=== PATIENT | female | born 1940 | race Caucasian/White ===

== ENCOUNTER 2019-11-25 17:04 | Inpatient (IN) | payer MEDICARE ==
[~2019-11-25] VITALS: Ht 160 cm; Wt 88.4 kg
[~2019-11-25 17:04] MED LIST: AMITIZA 24 MCG24 MCG PO; ASPIRIN EC81 M1 PO; ATENOLOL 25MG T25 MG PO; CARBIDOPA-LEVO1 EAC2 PO; DESYREL50 MG PO; DOCUSATE SODIU100 MG PO; DOXYCYCLINE 10100 MG PO; GLUMETZA500 PO; LACTULOSE10 GM/152; LEVOTHYROXIN0.112 M1; NORTRIPTYLINE H50 M3 GT; NOXIFOL-D32500 UNIT PO; PREDNISONE 20 M20 M1 PO; PROTONIX40 M2 PO; SMOOTHLAX17 GM PO; TYLENOL325 M1 PO; VENTOLIN HFA 1818 GM INH; VICODIN 5-5001 EACH PO; WOMAN'S LAXATIVE5 M1 PO; XANAX 0.5 MG0.5 M1 PO
[2019-11-25 17:16] VITALS: BP 162/71
[2019-11-25 18:00] LABS: CALCIUM 9.6 mg/dL (8.5-10.1); POTASSIUM 4.1 mmol/L (3.5-5.1)
[2019-11-25 18:01] LABS: APTT 26.4 Seconds (25.0-31.3); INR 1.1; PROTIME 10.8 Seconds (9.20-11.50)
[2019-11-25 18:10] LABS: ALBUMIN 3.5 g/dL (3.4-5.0); TOTAL BILIRUBIN 0.8 mg/dL (<0.1-1.0); TOTAL PROTEIN 6.8 g/dL (6.4-8.2)
[2019-11-25] MEDS ORDERED: ALPRAZOLAM 0.0.25 M1 PO (18:35)
[2019-11-25] MEDS ORDERED: LIPITOR 40 MG T40 M1 PO (18:35)
[2019-11-25] MEDS ORDERED: BRILINTA90 MG PO (18:36)
[2019-11-25] MEDS ORDERED: CARVEDILOL12.5 MG PO (18:38)
[2019-11-25] MEDS ORDERED: LEVO-T25 MCG PO (18:40)
[2019-11-25] MEDS ORDERED: NITROSTAT0.4 M1 SUBLING (18:41)
[2019-11-25] MEDS ORDERED: SENNA PLUS TAB1 EACH PO (18:42)
[2019-11-25] MEDS ORDERED: SERTRALINE HCL100 MG PO (18:43)
[2019-11-25 20:05] VITALS: BP 156/77
[2019-11-25 20:20] VITALS: BP 144/85
[2019-11-25 22:24] LABS: ABSOLUTE BASOPHILS 0.1 thou/uL (0.0-0.2); ABSOLUTE EOSINOPHILS 0.2 thou/uL (0.0-0.7); ABSOLUTE LYMPHOCYTES 1.5 thou/uL (0.8-5.3); ABSOLUTE MONOCYTES 0.7 thou/uL (0.0-1.2); BASOPHILS 0.8 %; EOSINOPHILS 1.7 %; HEMATOCRIT 33.5 % (37.0-47.0); HEMOGLOBIN 11.7 gm/dL (12.0-15.0); LYMPHOCYTES 14.2 %; MCH 30.1 pg (26.0-34.0); MCHC 34.9 g/dL (28.0-37.0); MCV 86.3 fL (80.0-100.0); MONOCYTES 6.8 %; MPV 8.4 fl. (7.2-11.1); NUCLEATED RBCS 0 /100WBC; PLATELET COUNT* 212 thou/uL (150-400); POLYS 76.5 %; RBC 3.89 mil/uL (4.20-5.00); RDW-CV 15.2 % (10.5-14.5); WBC 10.5 thou/uL (4.0-11.0)
[2019-11-25 23:54] VITALS: BP 156/71
--- NOTE | 2019-11-26 01:00 | NUR ---
PT ALERT, ORIENTED, SLOW RESPONCE, FORGETFUL. INITAL ASSESMENT PT NOTED TO HAVE TREMORS. TELEMETRY SHOWS SR. TREMORS INTERFERE WITH TELEMETRY. UP TO BSC WITH ASSIST OF TWO 5 TIMES. NO BM SINCE ADMISSION. BUTTOCKS SLIGHTLY RED BLANCHABLE. PT REQUESTED ANXIETY MEDS AND SLEEPING MEDICATION. XANAX AND MELATONIN GIVEN. PT CALLING OUT Q 15 MIN FOR VARIOUS THINGS UNTIL ASLEEP. WCTM
[2019-11-26 04:00] VITALS: BP 152/59
[2019-11-26 04:18] LABS: HEMATOCRIT 30.4 % (37.0-47.0); HEMOGLOBIN 10.5 gm/dL (12.0-15.0); MCH 29.8 pg (26.0-34.0); MCHC 34.6 g/dL (28.0-37.0); MCV 86.2 fL (80.0-100.0); MPV 8.9 fl. (7.2-11.1); RBC 3.52 mil/uL (4.20-5.00); RDW-CV 15.2 % (10.5-14.5); WBC 9.3 thou/uL (4.0-11.0)
[2019-11-26 04:44] LABS: ALBUMIN 2.8 g/dL (3.4-5.0); CALCIUM 9.2 mg/dL (8.5-10.1); CREATININE 0.9 mg/dL (0.6-1.3); MAGNESIUM 1.9 mg/dL (1.8-2.4); PHOSPHORUS* 2.9 mg/dL (2.5-4.9); POTASSIUM 3.7 mmol/L (3.5-5.1)
[2019-11-26 08:34] VITALS: BP 151/58
[2019-11-26 12:06] VITALS: BP 141/61
[2019-11-26 16:00] VITALS: BP 128/59
--- NOTE | 2019-11-26 16:04 | NUR ---
PT UP TO [facility] SEVERAL TIME COMPLAINING OF "SWOLLEN BOWEL PAIN". PT TOLERATED CLEAR LIQUID DIET. WILL CONTINUE TO ASSESS.
--- NOTE | 2019-11-26 18:21 | NUR ---
WORKED WITH PT THROUGHOUT THE DAY GETTING UP TO KAMODE AND AMBULATING. BY THE END OF THE SHIFT PT WAS ABLE TO GET TO BEDSIDE KAMODE BY HERSELF WELL WIPE HER BOTTOM AND AMBULATE TO THE SINK TO WASH HER HANDS BY HERSELF. PT NEEDED MOSTLY ENCOURAGEMENT. PT PROGRESSING TOWARDS GOALS.
[2019-11-26 19:50] VITALS: BP 149/61
[2019-11-27] VITALS: BP 163/71
[2019-11-27 04:00] VITALS: BP 163/75
[2019-11-27 05:26] LABS: URINE BILIRUBIN NEGATIVE (Negative); URINE BLOOD TRACE (Negative); URINE COLOR YELLOW; URINE GLUCOSE-RANDOM NEGATIVE (Negative); URINE KETONES NEGATIVE (Negative); URINE LEUKOCYTES-REFLEX 3+ (Negative); URINE NITRITE-REFLEX NEGATIVE (Negative); URINE PROTEIN NEGATIVE (Negative); URINE UROBILINOGEN 0.2 E.U./dl (0.2-1.0)
[2019-11-27 05:27] LABS: URINE CLARITY CLOUDY
[2019-11-27 05:29] LABS: BACTERIA-REFLEX >30 Many /HPF (None Seen); CASTS None Seen /LPF (None Seen); CRYSTALS None Seen /LPF (None Seen); MUCUS 0-3 Light strn/LPF (None Seen); SQUAMOUS 0-3 Few /LPF (0-3); URINE RBC 3-10 Few /HPF (0-2); URINE WBC-REFLEX >25 Many /HPF (0-5); WBC CLUMPS Few (None Seen)
--- NOTE | 2019-11-27 06:53 | NUR ---
VSS. SEE MAR. SEE CHARTING.
[2019-11-27 08:16] VITALS: BP 167/67
--- NOTE | 2019-11-27 10:27 | NUR ---
Nutrition: Pt stated she wants a CHOPPED DIET once it advances d/t her Lt arm needing therapy and her teeth. RECOMMEND CHOPPED DIET ONCE DIET ADVANCES PAST CLEARS.
[2019-11-27 12:08] VITALS: BP 167/67
--- NOTE | 2019-11-27 14:09 | NUR ---
PT UP TO CHAIR.
--- NOTE | 2019-11-27 14:51 | EKG ---
[place] [address] ELECTROCARDIOGRAM REPORT Name: HELGA KHOURY Room: [address] ADM IN M.R.#: [id number] Admission: 11/25/19 Attend Phys: Sebastián yuan Sa Discharge: Date of : 40 Date of Service: 11/25/19 1726 Report #: [id number] THIS REPORT FOR: //name// [facility] ED Test Date: 2019-11-25 Test Time: 17:26:22 Pat Name: HELGA KHOURY Department: Room: [facility] Gender: F Magazine Keeper: [place] : 1940 Requested By: Leopoldo Harrington Order Number: [id number] MD: Deshawn Mota Measurements Intervals [place] Rate: 80 P: ID: QRS: -52 QRSD: 116 T: 79 QT: 360 QTc: 416 Interpretive Statements sinus rhythm Left anterior fascicular block Left ventricular hypertrophy Compared to ECG 11/20/2012 02:23:02 no change Electronically Signed On 11-27-2019 14:50:08 CDT by Deshawn Mota [email or web address] <ELECTRONICALLY SIGNED> By: Deshawn Mota MD, [facility] 11/27/19 1450 1726 1726 Deshawn Mota MD, [facility] /EPI
--- NOTE | 2019-11-27 15:40 | NUR ---
CM spoke with Pt via phone. Pt resides at home with her dtr. Pt reports getting weak over the past few days. Pt states that she is normally independent, but states that her dtr has been having to help her with ADLs. Pt completes IADLs. Pt is cdiff pending. Pt has a walker and cane at home for mobility. Per , Pt has cdiff and parasite test pending. Therapies ordered. OT recommending acute rehab, CM to await PT recs. Pt in agreement that she will need either HH vs rehab at [place]. Following.
[2019-11-27 16:00] VITALS: BP 165/70
[2019-11-27 19:40] VITALS: BP 170/68
[2019-11-28] VITALS: BP 149/63
[2019-11-28 04:00] VITALS: BP 158/73
[2019-11-28 05:16] LABS: ALBUMIN 3.3 g/dL (3.4-5.0); CALCIUM 9.6 mg/dL (8.5-10.1); CREATININE 0.8 mg/dL (0.6-1.3); MAGNESIUM 1.9 mg/dL (1.8-2.4); POTASSIUM 3.2 mmol/L (3.5-5.1)
[2019-11-28 05:17] LABS: HEMATOCRIT 34.5 % (37.0-47.0); HEMOGLOBIN 11.9 gm/dL (12.0-15.0); MCH 29.8 pg (26.0-34.0); MCHC 34.6 g/dL (28.0-37.0); MCV 86.1 fL (80.0-100.0); RBC 4.01 mil/uL (4.20-5.00); RDW-CV 15.3 % (10.5-14.5); WBC 10.7 thou/uL (4.0-11.0)
--- NOTE | 2019-11-28 07:10 | NUR ---
CHANGE OF SHIFT, BEDSIDE REPORT GIVEN PATIENT SEEN AT BEDSIDE, IN BED ASLEEP ASSUMED PATIENT CARE
--- NOTE | 2019-11-28 07:32 | NUR ---
VSS. SEE MAR. SEE CHARTING. PT COMPLAINS OF CONSTIPATIONS ADDRESSED WITH ONCOMING SHIFT.
[2019-11-28 08:00] VITALS: BP 150/69
[2019-11-28 12:05] VITALS: BP 178/77
--- NOTE | 2019-11-28 14:43 | NUR ---
Per , Pt can dc once cdiff and O&P results are back. Per nurse cdiff was never sent. Dr reid
[2019-11-28 16:12] VITALS: BP 175/86
[2019-11-28 19:40] VITALS: BP 148/65
[2019-11-29] VITALS: BP 124/49; BP 139/82
[2019-11-29 04:00] VITALS: BP 103/53; BP 153/61
[2019-11-29 08:00] VITALS: BP 158/77
[2019-11-29 08:12] LABS: ALBUMIN 2.9 g/dL (3.4-5.0); CALCIUM 8.8 mg/dL (8.5-10.1); CREATININE 0.9 mg/dL (0.6-1.3); MAGNESIUM 1.6 mg/dL (1.8-2.4); PHOSPHORUS* 2.7 mg/dL (2.5-4.9)
[2019-11-29 08:45] LABS: CALCIUM 8.9 mg/dL (8.5-10.1); CREATININE 0.9 mg/dL (0.6-1.3)
[2019-11-29 10:53] LABS: HEMATOCRIT 32.1 % (37.0-47.0); HEMOGLOBIN 11.1 gm/dL (12.0-15.0); MCH 29.7 pg (26.0-34.0); MCHC 34.5 g/dL (28.0-37.0); MCV 86.2 fL (80.0-100.0); RBC 3.72 mil/uL (4.20-5.00); RDW-CV 15.3 % (10.5-14.5)
[2019-11-29 12:05] VITALS: BP 160/78
--- NOTE | 2019-11-29 12:55 | NUR ---
Per , cdiff negative, still pending parasite results. GI consulted for persistent watery diarrhea.
--- NOTE | 2019-11-29 15:52 | NUR ---
ASSUMED PT CARE AT 0730, PT RESTING IN BED, A&O AND C/O NO PAIN OR SHORTNESS OF BREATH, JUST SOME ABD PAIN R/T WHAT PT BELIEVES TO BE CONSTIPATION. PT ENDED UP HAVING MULTIPLE LOOSE WATERY STOOLS TODAY. PT REFUSES FLUIDS AND POTASSIUM OR MAGNESIUM IN IV BECAUSE SHE STATES IT COUCH, ENCOURAGED HER TO TAKE ORAL POTASSIUM AND MAG W/ SUCCESS AND DRINK MORE FLUIDS. PT CONSULTED W/ GI TODAY ABOUT EGD/COLON TOMORROW MORNING, WILL BE NPO AFTER MIDNIGHT AND IS ON CLEAR LIQUID DIET NOW. PT GOAL IS TO START GOLYTELY AND CONTINUE HAVING BMS UNTIL CLEAR. AM ASSESSMENT CHARTED, MEDS PER MAR, HOURLY ROUNDING OBSERVED, FALL PRECAUTIONS IN PLACE, CALL LIGHT W/IN REACH, WILL CONTINUE POC.
--- NOTE | 2019-11-29 16:38 | EKG ---
[place] [address] ELECTROCARDIOGRAM REPORT Name: WILBERT KHOURYARET Edgard Room: [address] ADM IN M.R.#: [id number] Admission: 11/25/19 Attend Phys: Sebastián yuan Sa Discharge: Date of : 40 Date of Service: 11/29/19 1508 Report #: [id number] THIS REPORT FOR: //name// [facility] Test Date: 2019-11-29 Test Time: 15:08:46 Pat Name: HELGA KHOURY Department: Room: [address] Gender: F Ship Runner: ROSALIA : 1940 Requested By: Sebastián Armendariz Order Number: [id number] Reading MD: Deshawn Mota Measurements Intervals [place] Rate: 53 P: 0 HI: 194 QRS: -45 QRSD: 119 T: 81 QT: 435 QTc: 409 Interpretive Statements Sinus bradycardia LVH with IVCD, LAD and secondary repol abnrm Compared to ECG 11/25/2019 17:26:22 no change Electronically Signed On 11-29-2019 16:37:08 CDT by Deshawn Mota [email or web address] <ELECTRONICALLY SIGNED> By: Deshawn Mota MD, [facility] 11/29/19 1637 1508 1508 Deshawn Mota MD, [facility] /EPI
[2019-11-29 16:40] VITALS: BP 111/75
--- NOTE | 2019-11-29 17:36 | NUR ---
NO ACUTE CHANGES THROUGHOUT SHIFT, PT STARTED ON GOLYTELY AND HAS ONLY FINISHED APPROXIMATELY 170 ML. EDUCATED PT ON WHY GOLYTELY IS NECESSARY FOR PROCEDURE TOMORROW, PT STATES HER STOMACH FEELS UNCOMFORTABLE AND SHE'S HAVING A HARD TIME DRINKING ANYMORE THAN THAT. MEDS PER AUG, HOURLY ROUNDING OBSERVED, FALL PRECAUTIONS IN PLACE, CALL LIGHT W/IN REACH, WILL CONTINUE POC.
[2019-11-30] VITALS: BP 138/61
[2019-11-30 08:00] VITALS: BP 156/84
--- NOTE | 2019-11-30 13:59 | NUR ---
Per , Pt to dc home. Pt declined to complete colon prep, GI signed off.
[2019-11-30 15:00] VITALS: BP 156/84
[2019-11-30] MEDS ORDERED: IMODIUM A-D2 MG PO (15:32)
[2019-11-30] MEDS ORDERED: BENTYL 20 MG TA20 M1 PO (15:32)
[2019-11-30] MEDS ORDERED: GLUCOTROL XL2.5 MG PO (15:32)
[2019-11-30] MEDS ORDERED: LEVAQUIN 750 M750 MG PO (15:40)
--- NOTE | 2019-11-30 18:01 | NUR ---
ASSUMED PT CARE AT 0730, PT SITTING ON BEDSIDE COMODE AND HAS NO C/O PAIN. PT BROUGHT DOWN FOR EGD/COLON AT APPROX 1000 BUT PROCEDURE WAS NOT SUCCESSFUL DUE TO PT ONLY DRINKING 4 CUPS OF THE BOWEL PREP. PT SPOKE W/ DR, SEE NOTES. PT TO DC TODAY AND FOLLOW UP W/ GI OUTPT. SINCE SHE REFUSED TO DRINK MORE BOWEL PREP AND TRY FOR ANOTHER EGD/COLON DURING THIS HOSPITAL STAY. SP0KE W/ PT'S DAUGHTER WHO HAD SOME COMPLAINTS ABOUT TAKING CARE OF PT, CM CONSULTED AND HOME HEALTH ORDERED FOR PT TO HELP W/ CARE AT HOME. PT C/O SOME ANXIETY AFTER ATTEMPTED PROCEDURE, PRN XANAX GIVEN W/ RELIEF. AM ASSESSMENT CHARTED, MEDS PER MAR, HOURLY ROUNDING OBSERVED, FALL PRECAUTIONS IN PLACE, CALL LIGHT W/IN REACH, WILL CONTINUE POC.
[2019-11-30 18:32] VITALS: BP 156/84
--- NOTE | 2019-11-30 21:24 | NUR ---
PT ESCORTED VIA WHEELCHAIR AT 2100. PT PICKED UP BY DAUGHTER. PT IV OUT AND REMOTE SENSING ENGINEER REMOVED. PT VOICED NO CONCERNS/QUESTIONS REGARDING DISCHARGE PAPERWORK. ALL BELONGINGS SENT WITH PATIENT.
--- NOTE | 2019-12-17 08:28 | CON ---
[address] [address] CONSULTATION Name: HELGA KHOURY Room: [address] IN ..#: [id number] Admission: 11/25/19 Attend Phys: Sebastián Centeno Discharge: 11/30/19 Date of : 40 Report #: [id number] THIS REPORT FOR: //name// cc: AJ Martines family physician/PCP AJ Martines family physician/PCP ~ THIS REPORT FOR: //name// CC: AJ physician/PCP Sebastián Armendariz DATE OF SERVICE: 11/29/2019 HISTORY OF PRESENT ILLNESS: This is a pleasant 79-year-old female with past medical history significant for type 2 diabetes, hypothyroidism and hypertension, who was presenting for evaluation of chronic diarrhea. The patient reports she has had chronic diarrhea for several weeks and diarrhea has been present on and off for the last 2 years. The patient reports being admitted in [facility] a few weeks back for dehydration. She claims she was discharged without any specific medication. The patient reports abdominal bloating, generalized discomfort in the epigastric and suprapubic regions. She reports having 4-5 bowel movements per day. The stools are usually loose and watery. She denies seeing any blood. The patient denies any weight loss, hematemesis or hematochezia. She denies any recent travel, sick contacts or recent antibiotic use. PAST MEDICAL HISTORY: Hypertension, diabetes, hyperlipidemia, hypothyroidism. PAST SURGICAL HISTORY: Appendectomy, cholecystectomy. SOCIAL HISTORY: The patient denies smoking, alcohol or recreational drug use. FAMILY HISTORY: There is no family history of colon cancer or Cristobal related neoplasia. The patient never had a colonoscopy before. REVIEW OF SYSTEMS: A comprehensive 10-point review of systems is negative except for what was mentioned in the HPI. PHYSICAL EXAMINATION: VITAL SIGNS: Temperature 36.7, pulse rate 51, respirations 20, blood pressure 158/77, pulse ox 98%. GENERAL: The patient is alert, awake, oriented x 3. HEENT: Pupils are equal, round, reactive to light and accommodation. Mucous membranes are moist. There is no congestion. LUNGS: Clear to auscultation bilaterally. CARDIOVASCULAR: Rate and rhythm regular, S1, S2 present. ABDOMEN: Soft. There is no distention, [place] [address] CONSULTATION Name: HELGA KHOURY Room: [address]#: [id number] Admission: 11/25/19 Attend Phys: Sebastián yuan [place] Discharge: 11/30/19 Date of : 40 Report #: [id number] EXTREMITIES: Warm, well perfused. There is no edema. SKIN: Warm and dry. LABORATORY DATA: Sodium 139, potassium 3.0, chloride 105, bicarbonate 25, BUN 5, creatinine 0.9, albumin 2.9. C. diff negative. IMAGING: CT abdomen and pelvis, no acute abnormalities identified. Bilateral renal cortical cysts small fat containing umbilical hernia. Small amount of air in the urinary bladder secondary to recent catheterization. ASSESSMENT AND PLAN: Pleasant 79-year-old female presenting with chronic diarrhea. C. diff has been tested and is negative. We will proceed with EGD and colonoscopy tomorrow and make further recommendations based on the procedures. <ELECTRONICALLY SIGNED> By: Jarred Leroy MD 12/17/19 0828 1040 [id number] Leroy MD /nt
== END 2019-11-30 21:26 | disposition home health service (06) | DRG 392 ==
LOC: M.ERS 17:04 → M.TBA-ER 18:28 → M.2W 18:28
PROVIDERS: Family Medicine; Internal Medicine Gastroenterology; ADMIT Family Medicine; ATTEND Family Medicine
DX: K58.0 Irritable bowel syndrome with diarrhea (principal); N39.0 Urinary tract infection, site not specified; I10 Essential (primary) hypertension; E03.9 Hypothyroidism, unspecified; E11.9 Type 2 diabetes mellitus without complications; E78.5 Hyperlipidemia, unspecified; K42.9 Umbilical hernia without obstruction or gangrene; K59.00 Constipation, unspecified; E86.0 Dehydration; I25.10 Atherosclerotic heart disease of native coronary artery without angina pectoris; B96.1 Klebsiella pneumoniae [K. pneumoniae] as the cause of diseases classified elsewhere; Z90.49 Acquired absence of other specified parts of digestive tract; Z79.82 Long term (current) use of aspirin; Z79.899 Other long term (current) drug therapy; Z79.84 Long term (current) use of oral hypoglycemic drugs; Z88.1 Allergy status to other antibiotic agents; Z88.0 Allergy status to penicillin; Z88.8 Allergy status to other drugs, medicaments and biological substances